=== PATIENT | male | born 1975 | race African-American/Black ===

== ENCOUNTER 2020-12-31 21:03 | Emergency (ER) | payer BC ==
[~2020-12-31] VITALS: Ht 182.9 cm; Wt 104.3 kg
[2020-12-31 21:05] VITALS: BP 138/86
--- NOTE | 2021-01-04 12:02 | NUR ---
RECEIVED PCR RESULT: INDETERMINENT REPORTED BY [facility] FROM LAB
== END 2020-12-31 22:07 | disposition home or self-care (01) ==
LOC: ER 21:14
DX: J02.9 Acute pharyngitis, unspecified (principal); Z20.822 Contact with and (suspected) exposure to COVID-19; R03.0 Elevated blood-pressure reading, without diagnosis of hypertension
CPT/HCPCS: 99283; C9803; U0003